=== PATIENT | female | born 1965 | race Caucasian/White ===

== ENCOUNTER 2020-03-17 16:03 | Outpatient (REF) | payer BC, SELFPAY | END 2020-03-17 16:04 | disposition home or self-care (01) | LOC: HO.LAB 16:03 | PROVIDERS: Visit Provider Internal Medicine | DX: Z20.828 Contact with and (suspected) exposure to other viral communicable diseases (principal) | CPT/HCPCS: 87635 ==

== ENCOUNTER → 2021-10-24 14:28 | Outpatient (BNVA) | payer BC, SELFPAY | DX: R39.14 Feeling of incomplete bladder emptying (principal); R39.15 Urgency of urination | CPT/HCPCS: 51798 ==